=== PATIENT | male | born 1950 | race Hispanic/Latino ===

== ENCOUNTER 2021-03-02 23:04 | Emergency (ER) | payer OTHER ==
[~2021-03-02] VITALS: Ht 185.4 cm; Wt 109.8 kg
[2021-03-02 23:22] VITALS: BP 156/85
[2021-03-03] MEDS ORDERED: OXYMETAZOLINE HCL SPRAY 15 ML BOTTLE EN SCH
[2021-03-03] MEDS ORDERED: TRANEXAMIC ACID 1000MG/10ML TP ONE
[2021-03-03] MEDS ORDERED: AMOX-426 PO (00:41)
[2021-03-03] MEDS ORDERED: AMOX/CLAV 500/125MG TAB PO ONE (01:00)
== END 2021-03-03 00:58 | disposition home or self-care (01) ==
LOC: EDH 23:36
DX: R04.0 Epistaxis (principal); I10 Essential (primary) hypertension; Z79.899 Other long term (current) drug therapy
CPT/HCPCS: 30901; 99284; J3490